=== PATIENT | female | born 1945 | race Caucasian/White ===

== ENCOUNTER 2017-12-28 20:40 | Emergency (ER) | payer OTHER ==
[~2017-12-28] VITALS: Ht 160 cm; Wt 64.4 kg
[2017-12-28] MEDS ORDERED: ATIVAN0.5 MG ORAL (20:48)
--- NOTE | 2017-12-28 20:57 | Emergency Room Report ---
History of Present Illness General Chief Complaint: Pain Source: Patient Present Illness HPI Patient presents with head trauma. She slipped on water and fell back and hit the back of her head. She has a hematoma there. It happened one hour before presentation. There was no loss of consciousness. She feels anxious and has a dry mouth. She also has an upset stomach at this time but declines treatment for nausea. No vomiting. No back or extremity pain. No change in vision. No chest pain, palpitations. Takes ativan for anxiety. Not tolerate NSAIDs because of stomach upset. Allergies: Coded Allergies: No Known Allergies (Unverified , 12/28/17) Patient History Past Medical History: see triage record Social History: Denies: smoking, alcohol use Social History Narrative with children Now: No Reviewed Nursing Documentation: PMH: Agreed, PSxH: Agreed Nursing Documentation-PMH Past Medical History: No History, Except For History Of Psychiatric Problem: Yes - anxiety Review of Systems All Other Systems: negative except mentioned in HPI Physical Exam Vital Signs Date Time Temp Pulse Resp B/P (MAP) Pulse Ox O2 Delivery O2 Flow Rate FiO2 12/28/17 20:43 97.9 94 14 178/81 95 Room Air Sp02 EP Interpretation: reviewed, normal General Appearance: well appearing, no apparent distress, GCS 15 Head: normocephalic, other - Hematoma occiput Eyes: bilateral eye normal inspection, bilateral eye PERRL, bilateral eye EOMI ENT: dry mucus membranes Neck: full range of motion, supple, no bony tend Respiratory: lungs clear, normal breath sounds Cardiovascular #1: regular rate, rhythm Cardiovascular #2: 2+ radial (R) Gastrointestinal: normal inspection, normal bowel sounds, non tender, no mass, non-distended Musculoskeletal: back normal, gait/station normal, normal range of motion Neurologic: alert, oriented x3, sausage mixer III-XII nml as tested, motor strength/tone normal, DTRs symmetric, sensory intact, cerebellar normal, normal gait, speech normal Psychiatric: anxious Skin: normal inspection, warm/dry, hematoma Medical Decision Making Diagnostic Impression: Primary Impression: Head injury Qualified Codes: S09.90XA - Unspecified injury of head, initial encounter Additional Impression: Hematoma ER Course Patient presents with a trauma. His hematoma. She's not on blood thinners. She feels nauseated. She declines treatment for this. CT the head is indicated based on her age. She has a nonfocal neurologic exam at this time. She be treated with Tylenol. CT without bleed or fx. Improved with treatment and hematoma decreased. Discussed treatment options for pain. Patient stable for outpatient observation and treatment. CT/MRI/US Diagnostic Results CT/MRI/US Diagnostic Results : Imaging Test Ordered: head Impression no fx, bleed Last Vital Signs Date Time Temp Pulse Resp B/P (MAP) Pulse Ox O2 Delivery O2 Flow Rate FiO2 12/28/17 23:19 97.9 14 178/81 95 Room Air 12/28/17 20:43 94 Status: improved Disposition: HOME, SELF-CARE Condition: Improved Scripts Codeine Sulf (CODEINE SULFATE) 15 Mg Tablet 15 MG PO Q6HR Y for For Pain, #8 TAB Prov: Julian Elliott M.D. 12/28/17 Julian Elliott M.D. Dec 28, 2017 20:57
[2017-12-28] MEDS ORDERED: Acetaminophen 500mg (ES) tab PO ONE (21:00)
[2017-12-28] MEDS ORDERED: CODEINE SULFATE15 MG PO (23:01)
[2017-12-28 23:19] VITALS: BP 178/81
--- NOTE | 2017-12-29 09:41 | Diagnostic Imaging Report ---
Indication: Head trauma and pain Technique: Contiguous 5 mm thick transaxial imaging of the head obtained in a Siemens Sensation [address] scanner. Soft tissue and bone windows generated. Automatic Exposure Control was utilized. Total Dose length Product (DLP): 1358.[address] Dose Index Volume (CTDIvol): 70.38 mGy Comparison: none Findings: The size and configuration of the cortical sulci, basal cisterns, and ventricles are within normal limits for age. There is no mass effect, midline shift, or edema identified. There is no evidence of acute hemorrhage or abnormal intra-axial or extra-axial fluid collections. The bones are unremarkable. Soft tissue swelling noted in the vertex. Impression: No mass effect, edema or acute bleed. [facility] has communicated the preliminary results to the Emergency Department. Their findings are largely concordant with this report. The CT scanner at [facility] [place] is accredited by the [employer] and the scans are performed using dose optimization techniques as appropriate to a performed exam including Automatic Exposure control.
== END 2017-12-28 23:24 | disposition home or self-care (01) ==
LOC: EMR 21:09
DX: S00.03XA Contusion of scalp, initial encounter (principal); W01.10XA Fall on same level from slipping, tripping and stumbling with subsequent striking against unspecified object, initial encounter; Y92.9 Unspecified place or not applicable
CPT/HCPCS: 70450; 99284